=== PATIENT | male | born 1990 | race African-American/Black ===

== ENCOUNTER 2016-07-30 18:48 | Emergency (ER) | payer MEDICAID, OTHER ==
[~2016-07-30] VITALS: Ht 177.8 cm; Wt 109.1 kg
[2016-07-30 18:58] VITALS: BP 142/63; PULSE 78; RESP 16; TEMP 98.5; O2SAT 98
--- NOTE | 2016-07-30 19:14 | PD ---
HPI Chief Complaint: Psychiatric Symptoms Time Seen by Provider: 19:11 Travel History International Travel<30 days: No Contact w/Intl Traveler<30days: No Traveled to known affect area: No History of Present Illness HPI 26-year-old male presents to the emergency Department under James act by local police for homicidal ideation. The patient states he released from [facility] last Monday. He reports history depression and schizophrenia. He states he quit taking his medication when he was released from [facility] approximately 1.5 weeks ago. He states that his well started yelling at him which intensified his homicidal ideations. He states that he thought about killing his boss, his roommates and then himself. Patient denies any attempt to hurt himself at this time stating "I haven't had a chance". Patient denies any current alcohol, tobacco,, or drug use. He reports history of using marijuana and Aleyda. Patient is unsure if he hears voices or has hallucinations. Patient is unsure what medications he is supposed to be taking.. PFSH Past Medical History Depression: Yes Immunizations Current: Yes Schizophrenia: Yes Tetanus Vaccination: > 5 Years Past Surgical History Surgical History: No Previous Surgery Social History Alcohol Use: No ("quit a month ago") Tobacco Use: Yes Substance Use: Yes (MJ, MDMA but wuit a month ago ) Allergies-Medications (Allergen,Severity, Reaction): Coded Allergies: No Known Allergies (Unverified , 07/30/16) Reported Meds & Prescriptions Reported Meds & Active Scripts Active Active Prescriptions or Reported Medications Unobtainable Review of Systems Except as stated in HPI: all other systems reviewed are Neg Physical Exam Narrative GENERAL: Well-developed well-nourished male patient, afebrile. SKIN: Warm and dry. HEAD: Normocephalic. Atraumatic. EYES: No scleral icterus. No injection or drainage. NECK: Supple, trachea midline. No JVD or lymphadenopathy. CARDIOVASCULAR: Regular rate and rhythm without murmurs, gallops, or rubs. RESPIRATORY: Breath sounds equal bilaterally. No accessory muscle use. Lungs sounds are clear to auscultation. GASTROINTESTINAL: Abdomen soft, non-tender, nondistended. MUSCULOSKELETAL: No cyanosis, or edema. BACK: Nontender without obvious deformity. No CVA tenderness. PSYCHIATRIC: No delusional thought processes. No hallucinations. Data Data Last Documented VS Vital Signs Date Time Temp Pulse Resp B/P Pulse Ox O2 Delivery O2 Flow Rate FiO2 07/30/16 18:58 98.5 78 16 142/63 98 Orders Complete Blood Count With Diff (07/30/16 19:10) Comprehensive Metabolic Panel (07/30/16 19:10) Psych Screen (07/30/16 19:10) Drug Screen, Random Urine (07/30/16 19:10) Alcohol (Ethanol) (07/30/16 19:10) Labs Laboratory Tests Test 07/30/16 19:00 White Blood Count 7.9 TH/MM3 Red Blood Count 5.40 MIL/MM3 Hemoglobin 12.5 GM/DL Hematocrit 39.5 % Mean Corpuscular Volume 73.1 FL Mean Corpuscular Hemoglobin 23.2 PG Mean Corpuscular Hemoglobin 31.7 % Concent Red Cell Distribution Width 15.9 % Platelet Count 202 TH/MM3 Mean Platelet Volume 8.9 FL Neutrophils (%) (Auto) 64.0 % Lymphocytes (%) (Auto) 20.2 % Monocytes (%) (Auto) 12.2 % Eosinophils (%) (Auto) 3.2 % Basophils (%) (Auto) 0.4 % Neutrophils # (Auto) 5.1 TH/MM3 Lymphocytes # (Auto) 1.6 TH/MM3 Monocytes # (Auto) 1.0 TH/MM3 Eosinophils # (Auto) 0.3 TH/MM3 Basophils # (Auto) 0.0 TH/MM3 CBC Comment AUTO DIFF Sodium Level 137 MEQ/L Potassium Level 3.8 MEQ/L Chloride Level 102 MEQ/L Carbon Dioxide Level 28.5 MEQ/L Anion Gap 7 MEQ/L Blood Urea Nitrogen 14 MG/DL Creatinine 1.00 MG/DL Estimat Glomerular Filtration 91 ML/MIN Rate Random Glucose 82 MG/DL Calcium Level 9.1 MG/DL Total Bilirubin 0.3 MG/DL Aspartate Amino Transf 59 U/L (AST/SGOT) Alanine Aminotransferase 80 U/L (ALT/SGPT) Alkaline Phosphatase 68 U/L Total Protein 7.7 GM/DL Albumin 4.0 GM/DL Ethyl Alcohol Level 3 MG/DL MDM Medical Decision Making Medical Screen Exam Complete: Yes Emergency Medical Condition: Yes Medical Record Reviewed: Yes Differential Diagnosis Depression versus schizophrenia versus substance abuse versus psychosis versus malingering Narrative Course 26-year-old male presents to the emergency Department under James act by local police for homicidal ideation. Patient reports history depression and schizophrenia. CBC, CMP, urine drug screen, alcohol level are ordered and pending. CBC shows no acute abnormality. CMP shows no acute abnormalities, slightly elevated liver enzymes with an AST of 59, ALT 80. UDS is pending. Alcohol level is 3. Patient is medically cleared for psychiatric screening and disposition. Mental health screening discussed with the patient. Psychiatric screen ordered. Diagnosis Primary Impression: Schizophrenia Qualified Code: F20.9 - Schizophrenia, unspecified type Additional Instructions: Patient is medically cleared for psychiatric screening and disposition Scripts Unable to Obtain Active Prescriptions or Reported Meds Condition: Angela Land Jul 30, 2016 19:14
[2016-07-30 19:29] LABS: AUTOMATED NEUTROPHIL # 5.1 TH/MM3 (1.8-7.7); BASOPHIL % 0.4 % (0.0-2.0); EOSINOPHIL # 0.3 TH/MM3 (0-0.4); EOSINOPHIL % 3.2 % (0.0-4.0); HEMATOCRIT 39.5 % (39.0-51.0); LYMPH % 20.2 % (9.0-44.0); LYMPHOCYTE # 1.6 TH/MM3 (1.0-4.8); MEAN CELL VOLUME 73.1 FL (80.0-100.0); MEAN CORPUSCULAR HEMOGLOBIN 23.2 PG (27.0-34.0); MEAN CORPUSCULAR HGB CONC 31.7 % (32.0-36.0); MONO % 12.2 % (0.0-8.0); PLATELET COUNT 202 TH/MM3 (150-450); RED CELL DISTRIBUTION WIDTH 15.9 % (11.6-17.2); WHITE BLOOD COUNT 7.9 TH/MM3 (4.0-11.0)
[2016-07-30 19:35] LABS: HEMO FLAGS AUTO DIFF
[2016-07-30 19:45] LABS: ANION GAP 7 MEQ/L (5-15)
[2016-07-30 19:48] LABS: ALKALINE PHOSPHATASE 68 U/L (45-117); ALT (GPT) 80 U/L (12-78); AST (GOT) 59 U/L (15-37); BICARBONATE 28.5 MEQ/L (21.0-32.0); BLOOD UREA NITROGEN 14 MG/DL (7-18); CHLORIDE 102 MEQ/L (98-107); GLOMERULAR FILTRATION RATE 91 ML/MIN (>89); POTASSIUM 3.8 MEQ/L (3.5-5.1); SODIUM (NA) 137 MEQ/L (136-145); TOTAL BILIRUBIN ADULT 0.3 MG/DL (0.2-1.0)
[2016-07-30 20:24] LABS: PLATELET ESTIMATE SMEAR NORMAL (NORMAL); PLATELET MORPHOLOGY NORMAL (NORMAL); SCAN/DIFF AUTO DIFF CONFIRMED
[2016-07-30 21:54] LABS: AMPHETAMINE, URINE NEG (NEG); BARBITURATES, URINE NEG (NEG); COCAINE, URINE NEG (NEG)
[2016-07-30 22:30] VITALS: PULSE 18
[2016-07-31 02:42] VITALS: RESP 18
[2016-07-31 06:28] VITALS: RESP 18
[2016-07-31] MEDS ORDERED: SERT-132 PO (08:54)
[2016-07-31] MEDS ORDERED: QUET1TAB10 PO (08:54)
--- NOTE | 2016-07-31 14:30 | PD ---
History of Present Illness Chief Complaint: Psychiatric Symptoms Time Seen by Provider: 11:45 Travel History International Travel<30 Days: No Contact w/Intl Traveler<30days: No Known affected area: No Legal Status Legal Status: James Act James Act Signed By: Sebastien Diggs History of Present Illness: History of Present Illness 26-year-old male with reported history of schizophrenia and substance abuse who presents to the emergency Department under James act by local police. As per the BA the patient contacted the police and reported that he felt like he wants to harm himself and others. While working at the [employer] he felt like he was going to harm others. Ed documentation is reviewed and included in this report : The patient states he released from [facility] last Monday. He reports history depression and schizophrenia. He states he quit taking his medication when he was released from [facility] approximately 1.5 weeks ago. He states that his well started yelling at him which intensified his homicidal ideations. He states that he thought about killing his boss, his roommates and then himself. Patient denies any attempt to hurt himself at this time stating "I haven't had a chance". Patient denies any current alcohol, tobacco,, or drug use. He reports history of using marijuana and Aleyda. Patient is unsure if he hears voices or has hallucinations. Patient is unsure what medications he is supposed to be taking. EMR was reviewed and this patient has not had previous contact with [facility] psychiatry. His toxicology is negative for any substances. Patient was monitored in J pod. He presented no major behavioral concerns and no suicidality. He did not appear to be responding to internal stimuli. He ate well and slept well. He was observed on the telephone involved in conversation with appropriate tone. He demanded d to have staff assist him in making multiple calls. His behavior indicates a high suspicion of a personality disorder with antisocial traits. After one telephone conversation he requests to be transferred to " the other unit"" and states " I was talking to my friend and he says there is another unit here . That's where I want to go". When informed that he was on the [facility] list for admission states " What is [facility], how do I get there. Take me there now. I don't want to stay here". Patient is alert, oriented, speech is clear and goal directed. did not verbalize any suicidal or homicidal ideation,intent or plan at this time. No psychosis and no jeronimo. Staff has contacted [facility] and they report that he was prescribed Zoloft as well as Seroquel PFSH Past Medical History Depression: Yes Immunizations Current: Yes Schizophrenia: Yes Tetanus Vaccination: > 5 Years Past Surgical History Surgical History: No Previous Surgery Psychiatric History Psychiatric History Hx Psychiatric Treatment: HX: SCHIZOPHRENIA, History of Inpatient Treatment: Yes ([facility]) Guns or firearms in home: No Social History Single male, lives at a sober House Hx Alcohol Use: No ("quit a month ago") Hx Tobacco Use: Yes Hx Substance Use: Yes (MJ, MDMA ) Hx of Substance Use Treatment: No Family Psychiatric History Negative Allergies-Medications (Allergen,Severity, Reaction): Coded Allergies: No Known Allergies (Unverified , 07/30/16) Reported Meds & Prescriptions Reported Meds & Active Scripts Active Reported Sertraline (Sertraline HCl) 50 Mg Tab 50 Mg PO DAILY Quetiapine (Quetiapine Fumarate) 300 Mg Tab 300 Mg PO HS Review of Systems Except as stated in HPI: all other systems reviewed are Neg Exam Alert: Yes Sutton: Person (ox4) Mood: Angry Affect: Other (congruent) Speech: Clear, Logical Eye Contact: Normal Memory Intact: Comment (no impairment) Hallucinations: Other (negative) Suicidal: Ideation (negative) Homicidal: Ideation (negative) Insight/Judgement Fair. Not impaired. [facility] Medical Decision Making Medical Record Reviewed: Yes Assessment/Plan 26 year old male under a bA for feeling like he wanted to hurt other people including his spring up supervisor while he was working at the [employer]. Patient was monitored in J pod with no significant behavioral concerns. Prominent antisocial traits prevalent became evident including demanding that staff meet his needs JODIE, demanding and dictating his treatment while at the same time providing conflicting information. At this time he does not meet BA criteria and does not present imminent risk to self or others. he is requesting discharge as the accommodations on this unit are not to his liking. He requests discharge. He will be provided with information as to how to access services at [facility] on a voluntary basis. Orders Complete Blood Count With Diff (07/30/16 19:10) Comprehensive Metabolic Panel (07/30/16 19:10) Psych Screen (07/30/16 19:10) Drug Screen, Random Urine (07/30/16 19:10) Alcohol (Ethanol) (07/30/16 19:10) Diet Regular Basic (07/31/16 Breakfast) Results Vital Signs Date Time Temp Pulse Resp B/P Pulse Ox O2 Delivery O2 Flow Rate FiO2 07/31/16 06:28 18 07/31/16 02:42 18 07/30/16 22:30 18 07/30/16 18:58 98.5 78 16 142/63 98 Laboratory Tests Test 07/30/16 07/30/16 19:00 21:15 White Blood Count 7.9 Red Blood Count 5.40 Hemoglobin 12.5 Hematocrit 39.5 Mean Corpuscular Volume 73.1 Mean Corpuscular Hemoglobin 23.2 Mean Corpuscular Hemoglobin 31.7 Concent Red Cell Distribution Width 15.9 Platelet Count 202 Mean Platelet Volume 8.9 Neutrophils (%) (Auto) 64.0 Lymphocytes (%) (Auto) 20.2 Monocytes (%) (Auto) 12.2 Eosinophils (%) (Auto) 3.2 Basophils (%) (Auto) 0.4 Neutrophils # (Auto) 5.1 Lymphocytes # (Auto) 1.6 Monocytes # (Auto) 1.0 Eosinophils # (Auto) 0.3 Basophils # (Auto) 0.0 CBC Comment AUTO DIFF Differential Comment AUTO DIFF CONFIRMED Platelet Estimate NORMAL Platelet Morphology Comment NORMAL Red Cell Morphology Comment NORMAL Sodium Level 137 Potassium Level 3.8 Chloride Level 102 Carbon Dioxide Level 28.5 Anion Gap 7 Blood Urea Nitrogen 14 Creatinine 1.00 Estimat Glomerular Filtration 91 Rate Random Glucose 82 Calcium Level 9.1 Total Bilirubin 0.3 Aspartate Amino Transf 59 (AST/SGOT) Alanine Aminotransferase 80 (ALT/SGPT) Alkaline Phosphatase 68 Total Protein 7.7 Albumin 4.0 Ethyl Alcohol Level 3 Urine Opiates Screen NEG Urine Barbiturates Screen NEG Urine Amphetamines Screen NEG Urine Benzodiazepines Screen NEG Urine Cocaine Screen NEG Urine Cannabinoids Screen NEG Diagnosis Primary Impression: Adjustment disorder Additional Impression: Substance abuse Ruled Out: Schizophrenia Psychiatrically Cleared: Yes Referrals: [facility] (Out patient) call for appointment Departure Forms: Tests/Procedures Patient Instructions: General Instructions, Mood Disorders (ED) Additional Instructions: Patient is medically cleared for psychiatric screening and disposition Med/ Other Pt Specific Info: No Meds Exist/No RX given Disposition: 01 DISCHARGE HOME Condition: Stable Problem Qualifiers Primary Impression: Adjustment disorder Qualified Code: F43.25 - Adjustment disorder with mixed disturbance of emotions and conduct Rahel Prater Jul 31, 2016 14:30
== END 2016-07-31 12:06 | disposition home or self-care (01) ==
LOC: NEPC 18:48 → NEPJ 07-31 12:06
DX: F43.25 Adjustment disorder with mixed disturbance of emotions and conduct (principal); F19.10 Other psychoactive substance abuse, uncomplicated; Z72.0 Tobacco use
CPT/HCPCS: 80053; 80307; 80320; 85025; 99283